=== PATIENT | male | born 1950 | race Caucasian/White ===

== ENCOUNTER 2017-04-02 07:01 | Emergency (ER) | payer MEDICARE ==
[2017-04-02 07:20] VITALS: BP 157/98
--- NOTE | 2017-04-02 07:34 | UC ---
Dental HPI - HPI Summary HPI Summary: The patient comes in today for: 1. Upper left toothache: Onset: 3 days Palliative/provocative: Chewing makes it worse. Advil helped. Quality: Dull ache at rest, sharp with biting. Region: Upper left Severity: 12/09 Time: Constant. Associated symptoms: Fevers: None. Previous disease: He has had a root canal and crown of this tooth. * - History of Current Complaint Chief Complaint: UCDentalProblem Stated Complaint: TOOTH ACHE Hx Obtained From: Patient, Family/Assistant Director - Allergies/Home Medications Allergies/Adverse Reactions: Allergies Allergy/AdvReac Type Severity Reaction Status Date / Time Ciprofloxacin [From Cipro] Allergy Hives Verified 04/02/17 07:09 Home Medications: Home Medications Acetaminophen [Acetaminophen Extra Stren] 1,000 mg PO Q4H PRN 04/02/17 [History Confirmed 04/02/17] Albuterol HFA INHALER* [Ventolin HFA Inhaler*] 1 - 2 puff INH Q6H PRN 04/02/17 [ History Confirmed 04/02/17] Fluticasone HFA 110 mcg(NF) [Flovent HFA 110 mcg(NF)] 2 puff INH BID 04/02/17 [ History Confirmed 04/02/17] Ibuprofen [Advil] 400 mg PO ONCE PRN 04/02/17 [History Confirmed 04/02/17] Naproxen Sodium [Naproxen Sodium 220 mg] 220 mg PO ONCE PRN 04/02/17 [History Confirmed 04/02/17] Testosterone GEL (NF) [Androgel (NF)] 50 mg TOPICAL DAILY 04/02/17 [History Confirmed 04/02/17] traZODone TAB* [Desyrel TAB*] 50 mg PO BEDTIME PRN 04/02/17 [History Confirmed 04/02/17] PMH/Surg Hx/FS Hx/Imm Hx Previously Healthy: No - Hypogonadism. Endocrine History: Thyroid Disease, Hypothyroidism, Dyslipidemia Respiratory History: Asthma - Surgical History Surgical History: Yes Surgery Procedure, Year, and Place: cataract - Family History Known Family History: Positive: Cardiac Disease Negative: Diabetes - Social History Occupation: Retired Alcohol Use: None Substance Use Type: None Smoking Status (MU): Former Smoker When Did the Patient Quit Smoking/Using Tobacco: 1980 Review of Systems Constitutional: Negative Skin: Negative Eyes: Negative ENT: Negative Respiratory: Negative Cardiovascular: Negative Gastrointestinal: Negative Genitourinary: Negative All Other Systems Reviewed And Are Negative: Yes Physical Exam Triage Information Reviewed: Yes Appearance: Well-Appearing, No Pain Distress, Well-Nourished Vital Signs: Initial Vital Signs Temp 98.1 F 04/02/17 07:15 Pulse 58 04/02/17 07:15 Resp 16 04/02/17 07:15 BP 157/98 04/02/17 07:15 Pulse Ox 95 04/02/17 07:15 Vital Signs Reviewed: Yes Eyes: Positive: Conjunctiva Clear. Negative: Discharge ENT: Positive: Hearing grossly normal, Other: - Ears: Bilateral cerumen buildup. No canal erythema or edema.. Negative: Pharyngeal erythema, Nasal congestion, Nasal drainage, Tonsillar swelling, Tonsillar exudate Dental: Positive: Other: - Tenderness to percussion of the #15 tooth Neck: Positive: Supple, Nontender, No Lymphadenopathy. Negative: Nuchal Rigidity Respiratory: Positive: Lungs clear, No respiratory distress, No accessory muscle use. Negative: Crackles, Rhonchi Cardiovascular: Positive: RRR, No Murmur Abdomen Description: Positive: Nontender, No Organomegaly, Soft. Negative: Distended, Guarding Musculoskeletal: Positive: Strength Intact, ROM Intact, No Edema Neurological: Positive: Alert, Muscle Tone Normal Psychological: Positive: Age Appropriate Behavior, Consolable Skin: Negative: rashes, breakdown Dental Complaint Course/Dx - Differential Dx/Diagnosis Provider Diagnoses: Pulpitis, #15 tooth Discharge - Discharge Plan Condition: Stable Disposition: HOME Patient Education Materials: Dental Abscess (ED), Toothache (ED) Referrals: Demarco Trevizo MD [Primary Care Provider] - As Soon As Possible Additional Instructions: Please see a dentist for definitive care as soon as you can.
== END 2017-04-02 07:57 | disposition home or self-care (01) ==
LOC: UCCORT 07:01
DX: K04.01 Reversible pulpitis (principal); Z87.891 Personal history of nicotine dependence; Z86.39 Personal history of other endocrine, nutritional and metabolic disease; Z87.09 Personal history of other diseases of the respiratory system
CPT/HCPCS: 99212; G0463

== ENCOUNTER 2018-03-04 07:28 | Emergency (ER) | payer MEDICARE ==
[2018-03-04 07:43] VITALS: BP 165/87
--- NOTE | 2018-03-04 08:28 | UC ---
Throat Pain/Nasal Luis HPI - HPI Summary HPI Summary: flakita woke up with a mild swelling of the left bottom jaw. it is only painful when it is touched. denies any cold or flu symtpoms. states his family has all had a cold. recent travel to [place]. afebrile. no swallowing or eating difficulty - History of Current Complaint Chief Complaint: UCGeneralIllness Stated Complaint: NECK PAIN/SWELLING Time Seen by Provider: 03/04/18 08:13 Hx Obtained From: Patient Onset/Duration: Sudden Onset, Lasting Hours Severity: Mild Pain Intensity: 0 Cough: None Associated Signs & Symptoms: Positive: Negative - Allergies/Home Medications Allergies/Adverse Reactions: Allergies Allergy/AdvReac Type Severity Reaction Status Date / Time ciprofloxacin Allergy Intermediate Hives Verified 03/04/18 07:44 Home Medications: Home Medications Amiodarone TAB* [Cordarone TAB*] 100 mg PO DAILY 03/04/18 [History Confirmed 12/17] Apixaban* [Eliquis*] 5 mg PO BID 03/04/18 [History Confirmed 03/04/18] PMH/Surg Hx/FS Hx/Imm Hx Previously Healthy: Yes - Surgical History Surgical History: Yes Surgery Procedure, Year, and Place: cataract - Family History Known Family History: Positive: Cardiac Disease Negative: Diabetes - Social History Alcohol Use: None Substance Use Type: None Smoking Status (MU): Former Smoker When Did the Patient Quit Smoking/Using Tobacco: 1980 Review of Systems Constitutional: Negative Skin: Negative Eyes: Negative ENT: Other - mild swelling under left jaw Respiratory: Negative Cardiovascular: Negative Gastrointestinal: Negative Genitourinary: Negative Motor: Negative Neurovascular: Negative Musculoskeletal: Negative Neurological: Negative Psychological: Negative Is Patient Immunocompromised?: No All Other Systems Reviewed And Are Negative: Yes Physical Exam Triage Information Reviewed: Yes Appearance: Well-Appearing, Well-Nourished, Pain Distress Vital Signs: Initial Vital Signs Temp 98.5 F 03/04/18 07:38 Pulse 58 03/04/18 07:38 Resp 16 03/04/18 07:38 BP 165/87 03/04/18 07:38 Pulse Ox 95 03/04/18 07:38 Vital Signs Reviewed: Yes Eye Exam: Normal ENT: Positive: Pharynx normal, TMs normal Dental Exam: Normal Neck exam: Normal Neck: Positive: Supple, Nontender, Enlarged Nodes @ - under the left mandible Respiratory Exam: Normal Respiratory: Positive: Chest non-tender, Lungs clear, Normal breath sounds Cardiovascular Exam: Normal Cardiovascular: Positive: RRR, No Murmur, Pulses Normal Abdominal Exam: Normal Abdomen Description: Positive: Nontender, No Organomegaly, Soft Bowel Sounds: Positive: Present Musculoskeletal Exam: Normal Musculoskeletal: Positive: Strength Intact, ROM Intact, No Edema Neurological Exam: Normal Neurological: Positive: Alert, Muscle Tone Normal Psychological Exam: Normal Skin Exam: Normal Throat Pain/Nasal Course/Dx - Differential Dx/Diagnosis Provider Diagnoses: cervical adenitis Discharge - Sign-Out/Discharge Documenting (check all that apply): Discharge/Admit/Transfer - Discharge Plan Condition: Stable Disposition: HOME Patient Education Materials: Adenitis (ED) Referrals: Demarco Trevizo MD [Primary Care Provider] - Additional Instructions: 1. Take the medication as prescribed. 2. Warm compresses to the area. 3. Follow up with any progression of symtpoms: fever, increased swelling, fatigue. - Billing Disposition and Condition Condition: STABLE Disposition: HOME
== END 2018-03-04 08:37 | disposition home or self-care (01) ==
LOC: UCCORT 07:28
DX: I88.9 Nonspecific lymphadenitis, unspecified (principal); Z87.891 Personal history of nicotine dependence; Z88.1 Allergy status to other antibiotic agents
CPT/HCPCS: 99212; G0463